=== PATIENT | female | born 1990 | race African-American/Black ===

== ENCOUNTER 2017-05-15 19:25 | Emergency (ER) | payer SELFPAY ==
[2017-05-15 19:31] VITALS: TEMP 98.4
--- NOTE | 2017-05-15 19:42 | EDPHY ---
H & P Stated Complaint: ABD PAIN AND CRAMPING HPI/ROS: CHIEF COMPLAINT: Abdominal pain with HISTORY OF PRESENT ILLNESS: This patient is a 27 year old female who is seven weeks complaining of abdominal pain onset today around 6:30pm, one and a half hours ago. Her last menstrual period was 03/27/17, and home [facility] . This is her fourth ; she has a 4 year old son and has had an and a miscarriage. 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 Today around 6:30 p.m. she developed bad pains beginning in her leg and moving to her lower abdominal area, severe enough to put her on the floor for 15 minutes. She rates the severity of her discomfort at 8 or 9/10. She took Tylenol 45 minutes ago and has experienced slight relief, with her pain reducing to 6/10. She endorses some light bleeding last week, but none today. She endorses morning sickness and loose stool yesterday. She has not had a bowel movement today. No dysuria or other urinary complaints. REVIEW OF SYSTEMS: A ten point review of systems was performed and is negative with the exception of the items mentioned in the HPI. Past medical history: A2. Unspecified bipolar, anxiety, depression, dissociative identity disorder. Past surgical history: Noncontributory. Family history: Unknown. Social history: Moved to [place] in November from [place]. Recently quit smoking. Occasional alcohol use. Occasional marijuana use. General Appearance: Alert. Vital signs reviewed. Eyes: Pupils equal and round, no conjunctival injection, no discharge. Anicteric. ENT, Mouth: Mucous membranes are moist, no oropharyngeal erythema or edema. Neck: No lymphadenopathy, supple. Respiratory: Lungs are clear to auscultation; no wheezes, rales, or rhonchi. Cardiovascular: Regular rate and rhythm; no murmur, rub, or gallop. Gastrointestinal: Suprapubic tenderness. No guarding or rebound. Abdomen is soft, no masses or organomegaly, bowel sounds normal. Skin: Warm and dry, no rashes on exposed skin, normal color. Back: Nontender to palpation over the thoracolumbar spine. No CVAT. Extremities: No lower extremity edema, no calf tenderness or swelling. Neurological: Alert and oriented. Moving all four extremities easily and equally. Psychiatric: Normal affect. - Personal History LMP (Females 10-55): Current Tetanus/Diphtheria Vaccine: Yes - Medical/Surgical History Hx Asthma: No Hx Chronic Respiratory Disease: No Hx Diabetes: No Hx Cardiac Disease: No Hx Renal Disease: No Hx Cirrhosis: No Hx Alcoholism: No Hx HIV/AIDS: No Hx Splenectomy or Spleen Trauma: No Other PMH: MISCARRAGE X 1 2016 - Social History Smoking Status: Former smoker Constitutional: Initial Vital Signs Temperature (C) 36.9 C 05/15/17 19:29 Heart Rate 102 H 05/15/17 19:29 Respiratory Rate 22 H 05/15/17 19:29 Blood Pressure 129/66 H 05/15/17 19:29 O2 Sat (%) 100 05/15/17 19:29 O2 Delivery Mode Room Air Allergies/Adverse Reactions: No Known Allergies Allergy (Unverified 05/15/17 19:31) Medical Decision Making - Diagnostics Imaging Results: Imaging Impressions Obstetrics Ultrasound 05/15/17 21:08 Impression: There is a single viable intrauterine gestation with biometry concordant with menstrual dating. The patient should return at 20 weeks gestation for more complete anatomic screening and repeat biometry. Findings were discussed with CHANDLER RAMIREZ MD at 22:54, on 05/15/2017. ED Course/Re-evaluation: Plan for labs including BHCG, CBC, UA. Plan for abdominal ultrasound if positive . BHCG positive. Plan for obstetrics ultrasound. Ultrasound reported to me by Dr. De La Garza. He describes a viable intrauterine , 7 weeks 2 days. Heartbeat 149. No subchorionic hemorrhage. Ovaries appear normal. I related the ultrasound reports to the patient. She is relieved. Her discomfort is much better with note treatment other than the Tylenol that she took earlier. Blood type is O-positive, Rhogam not indicated in this setting. Re-examination at the time of her discharge reveals an abdomen that is soft and nontender. She was initially slightly tachycardic but this has resolved and she now has a normal heart rate and normal respiratory rate. Danger signs reviewed with her. She is being referred for OBGYN care. Differential Diagnosis: I considered a differential diagnosis that includes but is not limited to ectopic , subchorionic hemorrhage, threatened , urinary tract infection, constipation, and viable pregnancyThe patient was evaluated and managed by the physician care management assistant. I have reviewed this chart and I agree with the findings and plan of care as documented, as indicated by my signature. I am the secondary supervising physician. - Data Points Laboratory Results: Laboratory Results 05/15/17 19:45 05/15/17 05/15/17 05/15/17 20:29 20:20 19:45 WBC RBC Hgb Hct MCV MCH MCHC RDW Plt Count MPV Neut % (Auto) Lymph % (Auto) [place] % (Auto) Eos % (Auto) Baso % (Auto) Nucleat RBC Rel Count Absolute Neuts (auto) Absolute Lymphs (auto) Absolute Monos (auto) Absolute Eos (auto) Absolute Basos (auto) Absolute Nucleated RBC Immature Gran % Immature Gran # Beta HCG, Quant 55959.00 mIU/mL H mIU/mL (0.00-4.83) Urine RBC 1-3 /hpf /hpf (0-3) Urine WBC 1-3 /hpf /hpf (0-3) Ur Epithelial Cells TRACE /lpf /lpf (NONE-1+) Urine Mucus TRACE /lpf /lpf (NONE-1+) Patient ABO/Rh O POSITIVE 05/15/17 19:45 WBC 9.29 10^3/uL 10^3/uL (3.80-9.50) RBC 4.57 10^6/uL 10^6/uL (4.18-5.33) Hgb 13.5 g/dL g/dL (12.6-16.3) Hct 40.2 % % (38.0-47.0) MCV 88.0 fL fL (81.5-99.8) MCH 29.5 pg pg (27.9-34.1) MCHC 33.6 g/dL g/dL (32.4-36.7) RDW 12.6 % % (11.5-15.2) Plt Count 200 10^3/uL 10^3/uL (150-400) MPV 11.6 fL fL (8.7-11.7) Neut % (Auto) 65.5 % % (39.3-74.2) Lymph % (Auto) 27.2 % % (15.0-45.0) [place] % (Auto) 5.6 % % (4.5-13.0) Eos % (Auto) 1.2 % % (0.6-7.6) Baso % (Auto) 0.3 % % (0.3-1.7) Nucleat RBC Rel Count 0.0 % % (0.0-0.2) Absolute Neuts (auto) 6.08 10^3/uL 10^3/uL (1.70-6.50) Absolute Lymphs (auto) 2.53 10^3/uL 10^3/uL (1.00-3.00) Absolute Monos (auto) 0.52 10^3/uL 10^3/uL (0.30-0.80) Absolute Eos (auto) 0.11 10^3/uL 10^3/uL (0.03-0.40) Absolute Basos (auto) 0.03 10^3/uL 10^3/uL (0.02-0.10) Absolute Nucleated RBC 0.00 10^3/uL 10^3/uL (0-0.01) Immature Gran % 0.2 % % (0.0-1.1) Immature Gran # 0.02 10^3/uL 10^3/uL (0.00-0.10) Beta HCG, Quant Urine RBC Urine WBC Ur Epithelial Cells Urine Mucus Patient ABO/Rh Departure - Departure Disposition: Home, Routine, Self-Care Clinical Impression: First trimester Condition: Good Instructions: Abdominal Pain in (ED) Additional Instructions: I am referring you to Dr. Holm for OBGYN care. I am also giving you referrals for primary care--[facility] and Dr. Sanchez. If you have severe lower abdominal pain/cramping, bleeding, fever, any new or concerning symptoms please be re-evaluated. Today's ultrasound shows an intrauterine , 7 weeks 2 days. The heart beat looks normal. Referrals: Eliza Holm MD [Medical Doctor] - As per Instructions Laura Phipps MD [Medical Doctor] - As per Instructions [facility],. [Clinic] - As per Instructions Report Scribed for: Chandler Ramirez Report Scribed by: Claire Justin Date of Report: 05/15/17 Time of Report: 21:35 Physician Review and Approval Statement: 05/15/17 23:05 Portions of this note were transcribed by the medical sales. I, Dr. Chandler Ramirez, personally performed the history, physical exam, and medical decision- making; and confirmed the accuracy of the information in the transcribed note.
[2017-05-15 20:13] LABS: % IMMATURE GRANULYOCYTES 0.2 % (0.0-1.1); ABSOLUTE IMMATURE GRANULOCYTES 0.02 10^3/uL (0.00-0.10); ADD DIFF? NO; ADD MORPH? NO; ADD SCAN? NO; ATYPICAL LYMPHOCYTE FLAG 10 (0-99); FRAGMENT RBC FLAG 0 (0-99); HEMATOCRIT 40.2 % (38.0-47.0); HEMOGLOBIN 13.5 g/dL (12.6-16.3); LEFT SHIFT FLG 0 (0-99); LIPEMIA HEMOLYSIS FLAG 80 (0-99); MEAN CELL HEMOGLOBIN 29.5 pg (27.9-34.1); MEAN CELL HEMOGLOBIN CONCENTR. 33.6 g/dL (32.4-36.7); MEAN PLATELET VOLUME 11.6 fL (8.7-11.7); PLATELET CLUMPS FLAG 0 (0-99); PLATELET COUNT 200 10^3/uL (150-400); RED BLOOD CELL COUNT 4.57 10^6/uL (4.18-5.33); RED CELL DISTRIBUTION WIDTH 12.6 % (11.5-15.2)
[2017-05-15 20:52] LABS: MUCUS TRACE /lpf (NONE-1+)
[2017-05-15 23:32] VITALS: BP 123/64; PULSE 87; RESP 16; O2SAT 99
== END 2017-05-15 23:32 | disposition home or self-care (01) ==
DX: O26.891 Other specified pregnancy related conditions, first trimester (principal); Z3A.01 Less than 8 weeks gestation of pregnancy; Z87.891 Personal history of nicotine dependence

== ENCOUNTER 2017-09-07 13:53 | Emergency (ER) | payer MEDICAID ==
[2017-09-07 14:31] VITALS: BP 116/69; PULSE 98; RESP 18; TEMP 98.4; O2SAT 99
--- NOTE | 2017-09-07 15:54 | EDPHY ---
H & P Time Seen by Provider: 09/07/17 15:47 HPI/ROS: CHIEF COMPLAINT: Injury left 3rd finger HISTORY OF PRESENT ILLNESS: 27-year-old female presents to the emergency department with injury to the left finger. The patient's at work and sustained a skin avulsion to the dorsal aspect of her left 3rd finger just a few hours prior to arrival. She did this while working. She complains of isolated pain to the left 3rd finger. ROS: Denies numbness or tingling in her fingers, retained foreign body or injury to the other fingers. Past Medical/Surgical History: , Social History: Has a life partner and lives in [place] Smoking Status: Former smoker Physical Exam: On examination the patient has a very small less than 1 cm skin avulsion the dorsal aspect of the left 3rd finger overlying PIP joint. Normal sensation to light touch with normal 2 point discrimination. No palpable bony tenderness. No suturable lacerations noted. No active bleeding noted. The other fingers do not appear injured. Constitutional: Initial Vital Signs Temperature (C) 36.9 C 09/07/17 14:28 Heart Rate 98 09/07/17 14:28 Respiratory Rate 18 09/07/17 14:28 Blood Pressure 116/69 09/07/17 14:28 O2 Sat (%) 99 09/07/17 14:28 O2 Delivery Mode Room Air Allergies/Adverse Reactions: No Known Allergies Allergy (Verified 09/07/17 14:28) Home Medications: Medication Instructions Recorded Vits W-Ca,Fe,FA(<1Mg) 1 each PO 09/07/17 [ Vitamins] MDM/Departure - MDM ED Course/Re-evaluation: 27-year-old female presents with skin avulsion to the left 3rd finger. She understands that there are no suturable lacerations. Her wound was thoroughly cleansed, Surgicel and dressing applied. Patient was given wound care precautions. - Depart Disposition: Home, Routine, Self-Care Clinical Impression: Skin avulsion left 3rd finger Condition: Good Instructions: Skin Avulsion (ED), Acute Wounds (ED) Additional Instructions: Keep wound dry, clean and protected especially while working. Ibuprofen 400 mg every 8 hr as needed for pain. Stand Alone Forms: Work Excuse Referrals: Work Comp Ref/Restrictions [Outside] - As per Instructions
== END 2017-09-07 16:21 | disposition home or self-care (01) ==
DX: O9A.219 Injury, poisoning and certain other consequences of external causes complicating pregnancy, unspecified trimester (principal); S61.203A Unspecified open wound of left middle finger without damage to nail, initial encounter; Z87.891 Personal history of nicotine dependence; W27.2XXA Contact with scissors, initial encounter; Y92.69 Other specified industrial and construction area as the place of occurrence of the external cause

== ENCOUNTER 2017-12-26 07:26 | Inpatient (IN) | payer MEDICAID ==
[~2017-12-26 07:26] MED LIST: fentaNYL 100 MCG/2 ML INJ IV ONE
[2017-12-26] MEDS ORDERED: EPSOM SALT 454 GM TP PRN (07:31)
[2017-12-26] MEDS ORDERED: OXYTOCIN/NORMAL SALINE 1,000 ML IV PRN (07:31)
[2017-12-26] MEDS ORDERED: TERBUTALINE SULFATE 1 MG/ML VIAL IV PRN (07:31)
[2017-12-26] MEDS ORDERED: LR 1,000 ML IV PRN (07:31)
[2017-12-26] MEDS ORDERED: MISOPROSTOL 200 MCG TAB PR PRN (07:31)
[2017-12-26] MEDS ORDERED: OLIVE OIL 118 ML BTL MISC PRN (07:31)
--- NOTE | 2017-12-26 07:37 | OBPROG ---
Labor Progress Note Assessment/Plan: Assessment:cat 1 fhr 4/100/-1 cephalic no contractions to begin pitocin per protocol arom when able no medical difficulties elective iol Plan:admit , pitocin per protocol 12/26/17 07:35 Subjective/Intrapartum Course: 12/26/17 07:34 Doing well denies difficulties. Ok with pitocin per protocol. Discussed r/b/a/ - SVE Dilation (cm): 4 Membranes: Intact - Contraction Pattern Assessment Current Contraction Pattern: Irregular - FHR Assessment Lau FHR (bpm): 135 FHR Category: 1 - Physical Exam General Appearance: WD/WN, alert, no apparent distress Respiratory: chest non-tender, lungs clear, normal breath sounds Cardiac/Chest: regular rate, rhythm Abdomen: normal bowel sounds Extremities: normal range of motion, Garrison's sign DTR- Lower Extremities: Knee (R): 1+, Knee (L): 1+ (no clonus) Skin: normal color, warm/dry Neuro/Psych: no motor/sensory deficits, alert, normal mood/affect, oriented x 3 ICD10 Worksheet Patient Problems: Problems Problem Status Onset elective IOL term Acute
[2017-12-26] MEDS ORDERED: OXYTOCIN/NORMAL SALINE 500 ML IV SCH (08:00)
[2017-12-26 08:16] LABS: PLATELET COUNT 128 10^3/uL (150-400)
[2017-12-26] MEDS ORDERED: TERBUTALINE SULFATE 1 MG/ML VIAL ONE (11:23)
[2017-12-26] MEDS ORDERED: OXYTOCIN 10 UNIT/ML VIAL ONE (11:23)
[2017-12-26] MEDS ORDERED: LIDOCAINE 1% 300 MG/30 ML SDV ONE (11:23)
[2017-12-26] MEDS ORDERED: OLIVE OIL 118 ML BTL ONE (11:23)
[2017-12-26] MEDS ORDERED: MISOPROSTOL 200 MCG TAB ONE (11:23)
[2017-12-26] MEDS ORDERED: AMMONIA AROMATIC 1 EACH AMP IH ONE (11:23)
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
--- NOTE | 2017-12-26 16:12 | OBPROG ---
Labor Progress Note Assessment/Plan: Assessment:cat 1 fhr 5/100/-1 cephalic anselmo q 3-5 minutes pitocin at 8 mu arom clear fluid nitrous and tub for pain relief Plan:expectant management of labor 12/26/17 07:35 12/26/17 16:10 Subjective/Intrapartum Course: 12/26/17 07:34 Doing well denies difficulties. Ok with pitocin per protocol. Discussed r/b/a/ 12/26/17 1138 Doing well. OK to arom clear fluid Objective: 12/26/17 08:00 Patient ABO/Rh O POSITIVE 12/26/17 08:00 - SVE Dilation (cm): 5 Effacement (%): 100 Station: -1 Membranes: AROM Amniotic Fluid Color: Clear - Contraction Pattern Assessment Current Contraction Pattern: Regular - FHR Assessment Lau FHR (bpm): 135 FHR Pattern Variability: Moderate FHR Category: 1 - Procedures Non-surgical Procedures: Amniotomy Oxytocin Orders Assessment - Pre-Induction/Augmentation Assessment Gestational Age: 39 week(s) and 0 day(s) ICD10 Worksheet Patient Problems: Problems Problem Status Onset elective IOL term Acute
--- NOTE | 2017-12-26 16:15 | OBDEL ---
Info Type: Vaginal Presentation at Delivery: Vertex L&D Analgesia/Anesthesia Type: Nitrous GBS+: No - Hospital Course Intrapartum: 12/26/17 07:34 Doing well denies difficulties. Ok with pitocin per protocol. Discussed r/b/a/ 12/26/17 1138 Doing well. OK to arom clear fluid Indications for Delivery: Elective Vaginal Delivery - Delivery Provider Delivery Physician/CNM: Tracy Fam Proctoring Provider: Judith Wallace - Labor and Delivery Onset of Contractions Date: 12/26/17 Onset of Contractions Time: 09:30 Onset of Contractions Type: Induced Rupture of Membranes Date: 12/26/17 Rupture of Membranes Time: 11:38 Rupture of Membranes Type: Artificial Amniotic Fluid Color: Clear Dilation Complete Date: 12/26/17 Dilation Complete Time: 15:15 Placenta Delivery Date: 12/26/17 Placenta Delivery Time: 15:30 Total Hours of Labor: 6 Non-surgical Procedures: Amniotomy Laceration: 2nd Degree Repair: 3-0, Vicryl Vaginal Sponge Count Correct: Yes Vaginal Needle Count Correct: Yes Vaginal Sweep Performed: Yes EBL: 500 Delivery Events: None - Medications Labor Augmentation/Induction Methods Used: Pitocin Labor Augmentation/Induction Indication: Elective [place] Data PRIYA: 01/02/18 Gestational Age: 39 week(s) and 0 day(s) Lau Delivery Date: 12/26/17 Delivery Time: 15:25 Sex of Infant: Male Score (1 Min): 8 Score (5 Min): 9 ICD10 Worksheet Patient Problems: Problems Problem Status Onset elective IOL term Acute
[2017-12-26] MEDS: IBUPROFEN 600 MG TAB PO PRN ×2 (16:17→22:23)
[2017-12-26] MEDS: METHYLERGONOVINE MAL 0.2 MG TAB PO SCH ×2 (16:26→20:15)
[2017-12-26] MEDS: HYDROCODONE/APAP 5/325 TAB PO PRN ×2 (17:10→21:17)
[2017-12-26] MEDS ORDERED: fentaNYL 100 MCG/2 ML INJ ONE (17:53)
--- NOTE | 2017-12-26 18:31 | OBPP ---
Progress Note Assessment/Plan: Assessment: 27 yo G3now P2 s/p unmedicated at 1525. Now having what appears to be severe uterine contraction pain. Hx of Borderline Personality Disorder, Bipolar disorder, suicide attempt x 3, and what sounds like many adverse childhood events per hx she shared with RN. Concern for hx of trauma contributing to what appears to be pain out of proportion. Plan: 25 mcg Fentanyl given, in addition to the 2 [place] and ibuprofen already on board. Ice and heat prn. Will continue to observe and encourage rest. Supportive psychosocial measures in place, reassuring about her safety here in the hospital. 12/26/17 18:31 12/26/17 18:43 Subjective/ Course: 12/26/17 18:33 Pt writhing in pain around 1730. Says pain is like contraction pains. Has never experienced pain like this before. Relates has only had narcotics with ulcer pain in 2013 with endoscopy. Takes no other medications at home currently. Objective: 12/26/17 08:00 Patient ABO/Rh O POSITIVE 12/26/17 08:00 HR 76 BP 109/55 gen - writhing in pain alternating with complete comfort and full sentences. When asked a question when in pain, was able to stop the writhing, answer the question in full calmly, before returning to moaning in pain. After receiving Fentanyl, seemed to be able to relax better. abd - soft, no rebound or guarding, and fundus is firm u-2. perineum - intact, no unusual swelling of vulva / labia bimanual exam - no masses in vagina, no unusual bleeding on exam, though pt is appropriately uncomfortable with bimanual exam. Uterine Position/Fundal Height: Umbilicus -2 Uterine Tone: Firm
[2017-12-26] MEDS ORDERED: ACETAMINOPHEN 325 MG TAB PO PRN (22:04)
[2017-12-26] MEDS ORDERED: SIMETHICONE 80 MG TAB CHEW PO PRN (22:04)
[2017-12-26] MEDS ORDERED: HYDROCORTISONE 0.5% CREAM TP PRN (22:04)
[2017-12-27] MEDS: METHYLERGONOVINE MAL 0.2 MG TAB PO SCH ×4 (00:17→12:21)
[2017-12-27] MEDS: HYDROCODONE/APAP 5/325 TAB PO PRN ×3 (01:14→20:30)
[2017-12-27] MEDS: IBUPROFEN 600 MG TAB PO PRN ×3 (04:32→15:46)
--- NOTE | 2017-12-27 09:41 | OBPP ---
Progress Note Assessment/Plan: Assessment: 27 y/o PPD #1 s/p elective IOL @ 39 weeks. Plan: Social work consultation today regarding options for therapists in her area. support and routine PPC. 12/27/17 09:40 Subjective/ Course: 12/26/17 18:33 Pt writhing in pain around 1730. Says pain is like contraction pains. Has never experienced pain like this before. Relates has only had narcotics with ulcer pain in 2013 with endoscopy. Takes no other medications at home currently. 12/27/17 09:37 Pt is doing well this am. She has min cramping and body soreness controlled with Ibuprofen and [place]. She is ambulating and voiding well and has min lochia. Breast feeding is going well and baby has a good latch. She is concerned about post depression and expressed interest in speaking to social work about counselors in her area. Objective: 12/27/17 05:55 Patient ABO/Rh O POSITIVE 12/26/17 08:00 Temp Pulse Resp BP Pulse Ox 37.1 C 82 19 106/66 97 12/27/17 08:00 12/27/17 08:00 12/27/17 08:00 12/27/17 08:00 12/27/17 08:00 Uterine Position/Fundal Height: Umbilicus -2 Uterine Tone: Firm Physical Exam - Physical Exam General Appearance: WD/WN, alert, no apparent distress Neck: non-tender, full range of motion, supple Respiratory: chest non-tender, lungs clear, normal breath sounds Cardiac/Chest: regular rate, rhythm Abdomen: normal bowel sounds Extremities: swelling (no), Garrison's sign (neg)
[2017-12-27] MEDS: IRON POLYSAC/IRON HEME 28 MG TAB PO SCH (12:21)
[2017-12-27] MEDS: DOCUSATE SODIUM 100 MG CAP PO PRN ×2 (13:07→20:29)
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
[2017-12-28] MEDS: HYDROCODONE/APAP 5/325 TAB PO PRN (03:57)
[2017-12-28] MEDS: IBUPROFEN 600 MG TAB PO PRN ×2 (04:00→09:55)
[2017-12-28] MEDS: IRON POLYSAC/IRON HEME 28 MG TAB PO SCH (09:55)
[2017-12-28 10:09] VITALS: BP 122/77
--- NOTE | 2017-12-28 10:30 | OBPP ---
Progress Note Assessment/Plan: Assessment: 27 yo G3now P2 s/p unmedicated at 1525. Now having what appears to be severe uterine contraction pain. Hx of Borderline Personality Disorder, Bipolar disorder, suicide attempt x 3, and what sounds like many adverse childhood events per hx she shared with RN. Concern for hx of trauma contributing to what appears to be pain out of proportion. Plan: 25 mcg Fentanyl given, in addition to the 2 [place] and ibuprofen already on board. Ice and heat prn. Will continue to observe and encourage rest. Supportive psychosocial measures in place, reassuring about her safety here in the hospital. 12/26/17 18:31 12/26/17 18:43 12/28/17 10:26 A: PPD#2 s/p , doing great. P: DC home, instructions reviewed - see dc summary Subjective/ Course: 12/26/17 18:33 Pt writhing in pain around 1730. Says pain is like contraction pains. Has never experienced pain like this before. Relates has only had narcotics with ulcer pain in 2013 with endoscopy. Takes no other medications at home currently. 12/27/17 09:37 Pt is doing well this am. She has min cramping and body soreness controlled with Ibuprofen and [place]. She is ambulating and voiding well and has min lochia. Breast feeding is going well and baby has a good latch. She is concerned about post depression and expressed interest in speaking to social work about counselors in her area. 12/28/17 10:28 Doing great, ready to go home. going well. Ambulating and voiding without difficulty. Will make 4 wk appt with [facility] therapist at [facility]. Objective: 12/27/17 05:55 Patient ABO/Rh O POSITIVE 12/26/17 08:00 Temp Pulse Resp BP Pulse Ox 36.4 C 74 18 122/77 H 98 12/28/17 08:00 12/28/17 08:00 12/28/17 08:00 12/28/17 08:00 12/28/17 08:00 gen - pleasant, NAD abd - soft, NT, fundus firm perineum - stitches intact, nl lochia, mild edema Uterine Position/Fundal Height: Umbilicus -2 Uterine Tone: Firm
--- NOTE | 2017-12-28 10:33 | OBGCSDC ---
General Delivery Information - General Info : 3 Para: 2 Abortions: 1 Type: Vaginal L&D Analgesia/Anesthesia Type: Nitrous Admission Date: 12/26/17 Labs: Patient ABO/Rh O POSITIVE 12/26/17 08:00 Hct 35.2 % (38.0-47.0) L 12/27/17 05:55 - Hospital Course Intrapartum: 12/26/17 07:34 Doing well denies difficulties. Ok with pitocin per protocol. Discussed r/b/a/ 12/26/17 1138 Doing well. OK to arom clear fluid : 12/26/17 18:33 Pt writhing in pain around 1730. Says pain is like contraction pains. Has never experienced pain like this before. Relates has only had narcotics with ulcer pain in 2013 with endoscopy. Takes no other medications at home currently. 12/27/17 09:37 Pt is doing well this am. She has min cramping and body soreness controlled with Ibuprofen and [place]. She is ambulating and voiding well and has min lochia. Breast feeding is going well and baby has a good latch. She is concerned about post depression and expressed interest in speaking to social work about counselors in her area. 12/28/17 10:28 Doing great, ready to go home. going well. Ambulating and voiding without difficulty. Will make 4 wk appt with [facility] therapist at [facility]. Vaginal - Delivery Provider Delivery Physician/CNM: Tracy Fam - Diagnosis Labor: Induced Rupture of Membranes Type: Artificial Amniotic Fluid Color: Clear Laceration: 2nd Degree Repair: 3-0, Vicryl Delivery Events: None - Procedures Non-surgical Procedures: Amniotomy - Delivery Non-surgical Procedures: Amniotomy EBL: 500 Data PRIYA: 01/02/18 Gestational Age: 39 week(s) and 2 day(s) Lau Delivery Date: 12/26/17 Delivery Time: 15:25 Sex of : Male Score (1 Min): 8 Score (5 Min): 9 Discharge Information - Discharge Information Prescriptions: Hydrocodone/APAP 5/325 [[place] 5/325 (*)] 1 - 2 tab PO Q4HRS PRN #12 tab PRN Reason: Pain, Moderate Iron Polysacch/Iron Heme Polyp [Bifera] 28 mg PO DAILY #30 tab Condition: Good Instruction/Follow Up: Four Weeks, Six Weeks
== END 2017-12-28 12:00 | disposition home health service (06) | DRG 560 ==
LOC: FLD 07:26 → FOB 20:04
PROVIDERS: ADMIT Hospitalist; ATTEND Hospitalist
PROC: 10907ZC Drainage of Amniotic Fluid, Therapeutic from Products of Conception, Via Natural or Artificial Opening (ICD-10-PCS; principal; 2017-12-26)
PROC: 3E033VJ Introduction of Other Hormone into Peripheral Vein, Percutaneous Approach (ICD-10-PCS; principal; 2017-12-26)
PROC: 0KQM0ZZ Repair Perineum Muscle, Open Approach (ICD-10-PCS; principal; 2017-12-26)
PROC: 10E0XZZ Delivery of Products of Conception, External Approach (ICD-10-PCS; principal; 2017-12-26)
DX: O70.1 Second degree perineal laceration during delivery (principal); O99.344 Other mental disorders complicating childbirth; F17.210 Nicotine dependence, cigarettes, uncomplicated; F60.3 Borderline personality disorder; F31.9 Bipolar disorder, unspecified; Z87.440 Personal history of urinary (tract) infections; Z91.5 Personal history of self-harm; Z14.8 Genetic carrier of other disease; Z3A.39 39 weeks gestation of pregnancy; Z37.0 Single live birth
CPT/HCPCS: J2590; J3010; J3105